=== PATIENT | female | born 1975 | race Caucasian/White ===

== ENCOUNTER → 2023-01-28 | Outpatient (CLI) | payer BC ==
--- NOTE | 2023-01-29 17:14 | MM ---
Reason for Exam: Screening (asymptomatic). Last mammogram was performed 6 year(s) and 3 month(s) ago. Patient History: Menarche at age 10. Patient has no children. Maternal grandmother had ovarian cancer, age 65. Paternal aunt had breast cancer, age 35. Paternal aunt had breast cancer, age 55. Last menstrual period: 03/09/2022 Risk Values: Helen 5 year model risk: 1.0%. NCI Lifetime model risk: 10.0%. Prior Study Comparison: 11/01/2016 Bilateral Screening Mammogram, [facility]. Tissue Density: The breast tissue is heterogeneously dense. This may lower the sensitivity of mammography. Findings: Analyzed By CAD. There is no suspicious group of microcalcifications or new suspicious mass in either breast. Overall Assessment: Negative, BI-RAD 1 Management: Screening Mammogram of both breasts in 1 year. . Patient should continue monthly self-breast exams. A clinical breast exam by your physician is recommended on an annual basis. This exam should not preclude additional follow-up of suspicious palpable abnormalities. Note on Helen scores and lifetime risk: 1. A Helen score greater than 3% is considered moderate risk. If this is the case, consider specialist referral to assess eligibility for a risk reducing agent. 2. If overall lifetime risk for the development of breast cancer is 20% or higher, the patient may qualify for future screening with alternating mammogram and breast MRI. Electronically signed and approved by: Rupinder Archer M.D. Radiologist
== END | disposition home or self-care (01) ==
LOC: RADMAMWWP 13:43
PROVIDERS: ATTEND Obstetrics & Gynecology
DX: Z12.31 Encounter for screening mammogram for malignant neoplasm of breast (principal); Z80.3 Family history of malignant neoplasm of breast; Z80.41 Family history of malignant neoplasm of ovary
CPT/HCPCS: 77063; 77067